=== PATIENT | female | born 1945 | race Caucasian/White ===

== ENCOUNTER 2019-10-09 12:44 | Emergency (ER) | payer OTHER ==
[2019-10-09 12:49] LABS: Glucose,Whole Blood 129 mg/dL (75-99)
--- NOTE | 2019-10-09 13:01 | ED ---
General Adult HPI - General Chief complaint: Syncope Stated complaint: Passed Out Time Seen by Provider: 10/09/19 12:45 Source: patient, EMS, RN notes reviewed Mode of arrival: EMS Limitations: no limitations - History of Present Illness Initial comments: Patient is a pleasant 74-year-old female presenting to the emergency department following a syncopal episode. Patient was at lunch when she passed out. Patient states she felt fine prior to the episode and feels fine at this time. Episode lasted approximately 2 minutes. Patient did have a near-syncopal episode once previously however never has passed out before. Patient denies any chest or back pain. No abdominal pain. No headache. No confusion. No weakness. - Related Data Allergies Allergy/AdvReac Type Severity Reaction Status Date / Time Penicillins Allergy Rash/Hives Verified 10/09/19 13:04 Sulfa (Sulfonamide Allergy Rash/Hives Verified 10/09/19 13:04 Antibiotics) Review of Systems ROS Statement: Those systems with pertinent positive or pertinent negative responses have been documented in the HPI. ROS Other: All systems not noted in ROS Statement are negative. Constitutional: Denies: fever Eyes: Denies: eye pain ENT: Denies: ear pain Respiratory: Denies: cough, dyspnea Cardiovascular: Denies: chest pain Endocrine: Denies: fatigue Gastrointestinal: Denies: abdominal pain, nausea, vomiting Genitourinary: Denies: dysuria Musculoskeletal: Denies: back pain Skin: Denies: rash Neurological: Denies: headache, weakness, numbness, paresthesias, confusion, vertigo Past Medical History History of Any Multi-Drug Resistant Organisms: None Reported Smoking Status: Never smoker Past Alcohol Use History: Occasional Past Drug Use History: None Reported General Exam Limitations: no limitations General appearance: alert, in no apparent distress Head exam: Present: atraumatic, normocephalic Eye exam: Present: normal appearance, PERRL, EOMI. Absent: nystagmus ENT exam: Present: normal oropharynx Neck exam: Present: normal inspection. Absent: tenderness Respiratory exam: Present: normal lung sounds bilaterally Cardiovascular Exam: Present: regular rate, normal rhythm Expanded Peripheral pulses: 2+: Radial (R), Radial (L), Posterior Tibialis (R), Posterior Tibialis (L), Dorsalis Pedis (R), Dorsalis Pedis (L) GI/Abdominal exam: Present: soft. Absent: tenderness Extremities exam: Present: normal inspection. Absent: pedal edema, calf tenderness Neurological exam: Present: alert, CN II-XII intact. Absent: motor sensory deficit Expanded Neurological exam: Present: protecting the airway Patient oriented to: Present: person, place. Absent: time (States the year is 2019) Speech: Present: fluid speech Cranial nerves: EOM's Intact: Normal Sensory exam: Upper Extremity Light Touch: Normal, Lower Extremity Light Touch: Normal Motor strength exam: RUE: 5, LUE: 5, RLE: 5, LLE: 5 Eye Response: (4) open spontaneously Motor Response: (6) obeys commands Verbal Response: (5) oriented Psychiatric exam: Present: normal affect, normal mood Skin exam: Present: normal color Course Vital Signs 10/09/19 10/09/19 10/09/19 12:51 13:59 14:56 Temperature 97.4 F L 97.5 F L Pulse Rate 62 68 70 Respiratory 18 18 16 Rate Blood Pressure 93/82 104/58 109/58 O2 Sat by Pulse 100 99 99 Oximetry - Reevaluation(s) Reevaluation #1: 10/09/19 14:21 Patient reevaluated and symptom-free, Alert and oriented 3. Patient and family are updated on results. Recommendation is provided to transfer by ambulance to [facility]. Patient and family are made aware that this is a facility that is able to take care mother needs. Secondary to patient being [place] they are deciding to call their insurance company prior to any transfer and are considering going to [place]. 10/09/19 14:40 Case was earlier discussed with radiologist who recommended MRI. He did not f eel there was need for CTA. Discussion with patient [employer] insurance company per their request. Case was discussed with [facility] and then case was discussed with Dr. Winston who will try to arrange transfer to [place]. She'll try to call back with an hour. Patient and family updated regarding this including risk of delayed care. 10/09/19 15:58 Insurance company, Dr. Tish Oneill did call back and is improving and helping arrange transfer. She recommends [facility]. Case was discu ssed with Dr. Zee who states they do have ability to take care of the patient and will accept transfer. EKG Findings - EKG Comments: EKG Findings:: Sinus rhythm at 61. First-degree AV block CT of 260. QRS 158. QTC 500. QTc 503. Normal axis. Left bundle-branch block. No acute ST change. Medical Decision Making - Lab Data Result diagrams: 10/09/19 12:54 10/09/19 12:54 Lab Results 10/09/19 10/09/19 10/09/19 Range/Units 12:47 12:54 12:54 WBC 5.3 (3.8-10.6) k/uL RBC 4.24 (3.80-5.40) m/uL Hgb 12.0 (11.4-16.0) gm/dL Hct 37.5 (34.0-46.0) % MCV 88.5 (80.0-100.0) fL MCH 28.2 (25.0-35.0) pg MCHC 31.9 (31.0-37.0) g/dL RDW 13.9 (11.5-15.5) % Plt Count 210 (150-450) k/uL Neutrophils % 64 % Lymphocytes % 26 % Monocytes % 6 % Eosinophils % 1 % Basophils % 0 % Neutrophils # 3.4 (1.3-7.7) k/uL Lymphocytes # 1.4 (1.0-4.8) k/uL Monocytes # 0.3 (0-1.0) k/uL Eosinophils # 0.1 (0-0.7) k/uL Basophils # 0.0 (0-0.2) k/uL PT (9.0-12.0) sec INR (<1.2) APTT (22.0-30.0) sec Sodium 139 (137-145) mmol/L Potassium 4.4 (3.5-5.1) mmol/L Chloride 108 H (98-107) mmol/L Carbon Dioxide 20 L (22-30) mmol/L Anion Gap 11 mmol/L BUN 27 H (7-17) mg/dL Creatinine 1.22 H (0.52-1.04) mg/dL Est GFR (CKD-EPI)AfAm 51 (>60 ml/min/1.73 sqM) Est GFR (CKD-EPI)NonAf 44 (>60 ml/min/1.73 sqM) Glucose 125 H (74-99) mg/dL POC Glucose (mg/dL) 129 H (75-99) mg/dL POC Glu Vessel Ordinary Seaman ID Ivett Perry Calcium 9.5 (8.4-10.2) mg/dL Magnesium 1.6 (1.6-2.3) mg/dL Total Bilirubin 0.9 (0.2-1.3) mg/dL AST 19 (14-36) U/L ALT 11 (4-34) U/L Alkaline Phosphatase 64 (38-126) U/L Troponin I (0.000-0.034) ng/mL Total Protein 7.4 (6.3-8.2) g/dL Albumin 3.8 (3.5-5.0) g/dL Urine Color Urine Appearance (Clear) Urine pH (5.0-8.0) Ur Specific Thor (1.001-1.035) Urine Protein (Negative) Ur Protein Confirm (Negative) Urine Glucose (UA) (Negative) Urine Ketones (Negative) Urine Blood (Negative) Urine Nitrite (Negative) Urine Bilirubin (Negative) Urine Urobilinogen (<2.0) mg/dL Ur Leukocyte Esterase (Negative) Urine RBC (0-5) /hpf Urine WBC (0-5) /hpf Ur Squamous Epith Cells (0-4) /hpf Urine Bacteria (None) /hpf Hyaline Casts (0-2) /lpf Urine Mucus (None) /hpf 10/09/19 10/09/19 10/09/19 Range/Units 12:54 12:54 13:47 WBC (3.8-10.6) k/uL RBC (3.80-5.40) m/uL Hgb (11.4-16.0) gm/dL Hct (34.0-46.0) % MCV (80.0-100.0) fL MCH (25.0-35.0) pg MCHC (31.0-37.0) g/dL RDW (11.5-15.5) % Plt Count (150-450) k/uL Neutrophils % % Lymphocytes % % Monocytes % % Eosinophils % % Basophils % % Neutrophils # (1.3-7.7) k/uL Lymphocytes # (1.0-4.8) k/uL Monocytes # (0-1.0) k/uL Eosinophils # (0-0.7) k/uL Basophils # (0-0.2) k/uL PT 10.8 (9.0-12.0) sec INR 1.0 (<1.2) APTT 21.5 L (22.0-30.0) sec Sodium (137-145) mmol/L Potassium (3.5-5.1) mmol/L Chloride (98-107) mmol/L Carbon Dioxide (22-30) mmol/L Anion Gap mmol/L BUN (7-17) mg/dL Creatinine (0.52-1.04) mg/dL Est GFR (CKD-EPI)AfAm (>60 ml/min/1.73 sqM) Est GFR (CKD-EPI)NonAf (>60 ml/min/1.73 sqM) Glucose (74-99) mg/dL POC Glucose (mg/dL) (75-99) mg/dL POC Glu Vessel Ordinary Seaman ID Calcium (8.4-10.2) mg/dL Magnesium (1.6-2.3) mg/dL Total Bilirubin (0.2-1.3) mg/dL AST (14-36) U/L ALT (4-34) U/L Alkaline Phosphatase (38-126) U/L Troponin I <0.012 (0.000-0.034) ng/mL Total Protein (6.3-8.2) g/dL Albumin (3.5-5.0) g/dL Urine Color Marcella Urine Appearance Cloudy H (Clear) Urine pH 6.0 (5.0-8.0) Ur Specific Thor 1.025 (1.001-1.035) Urine Protein 3+ H (Negative) Ur Protein Confirm (Negative) Urine Glucose (UA) Negative (Negative) Urine Ketones Negative (Negative) Urine Blood Large (Negative) Urine Nitrite Negative (Negative) Urine Bilirubin Negative (Negative) Urine Urobilinogen 2.0 (<2.0) mg/dL Ur Leukocyte Esterase Large (Negative) Urine RBC >182 H (0-5) /hpf Urine WBC 109 H (0-5) /hpf Ur Squamous Epith Cells 42 H (0-4) /hpf Urine Bacteria Moderate H (None) /hpf Hyaline Casts 124 H (0-2) /lpf Urine Mucus Many H (None) /hpf - Radiology Data Radiology results: report reviewed (Computed tomography scan the brain shows 1.4 cm right cerebellar lesion containing some high density material which may be some blood.), image reviewed (Chest x-ray shows no acute process) Disposition Clinical Impression: Cerebellar lesion Disposition: OTHER INSTITUTION NOT DEFINED Is patient prescribed a controlled substance at d/c from ED?: No Referrals: None,Stated [Primary Care Provider] - 1-2 days Time of Disposition: 15:59 - Out of Hospital Transfer - Req. Specs Out of Hospital Transfer - Requested Specifics: Other Emergency Center
[2019-10-09 13:06] LABS: Basophils % (A) 0 %; Eosinophils # (A) 0.1 k/uL (0-0.7); Eosinophils % (A) 1 %; HCT 37.5 % (34.0-46.0); Lymphocytes # (A) 1.4 k/uL (1.0-4.8); Lymphocytes % (A) 26 %; MCH 28.2 pg (25.0-35.0); MCHC 31.9 g/dL (31.0-37.0); MCV 88.5 fL (80.0-100.0); Mean Platelet Volume 7.9; Monocytes # (A) 0.3 k/uL (0-1.0); Monocytes % (A) 6 %; Neutrophils # (A) 3.4 k/uL (1.3-7.7); Neutrophils % (A) 64 %; Platelet Count 210 k/uL (150-450); RBC 4.24 m/uL (3.80-5.40); RDW 13.9 % (11.5-15.5); WBC 5.3 k/uL (3.8-10.6)
[2019-10-09 13:20] LABS: Albumin 3.8 g/dL (3.5-5.0); Calcium 9.5 mg/dL (8.4-10.2); Magnesium 1.6 mg/dL (1.6-2.3); Potassium 4.4 mmol/L (3.5-5.1); Total Bilirubin 0.9 mg/dL (0.2-1.3); Total Protein 7.4 g/dL (6.3-8.2)
[2019-10-09 13:24] LABS: Prothrombin Time 10.8 sec (9.0-12.0)
[2019-10-09 13:27] LABS: Partial Thromboplastin Time 21.5 sec (22.0-30.0)
--- NOTE | 2019-10-09 13:41 | CT ---
EXAMINATION TYPE: CT brain wo con DATE OF EXAM: 10/09/2019 COMPARISON: NONE HISTORY: Passed out CT DLP: 1072.4 mGycm Automated exposure control for dose reduction was used. FINDINGS: There are mild, generalized changes of sulcal prominence and ventriculomegaly compatible with mild at rophy. There is diffuse periventricular white matter lucency compatible with chronic white matter isc hemic change. There is a 1.4 cm lesion in the right cerebellar hemisphere which contains some high de nsity components. It would be difficult to exclude a small amount of blood. No other focal lesion, ma ss effect or midline shift is seen. Visualized portions of the paranasal sinuses and mastoids are clear. The bony calvarium is intact. IMPRESSION: 1.4 CM RIGHT CEREBELLAR LESION CONTAINING SOME HIGH DENSITY MATERIAL WITHIN WHICH MAY BE SOME BLOOD. THIS REPORT WAS PHONED TO DR. KENYON IN THE ER AT THE TIME OF REPORTING.
--- NOTE | 2019-10-09 14:04 | XR ---
EXAMINATION TYPE: XR chest 2V DATE OF EXAM: 10/09/2019 COMPARISON: NONE TECHNIQUE: PA and lateral views submitted. HISTORY: Syncope FINDINGS: The lungs are clear and there is no pneumothorax, pleural effusion, or focal pneumonia. No overt fa ilure. Heart size the upper limits of normal. Atherosclerotic change aorta. Biapical pleural thickeni ng. No overt failure. Prominent margin the anterior first rib on the right. Postsurgical change sugge stive of cardiac valve surgery and surgical clips right upper quadrant. Degenerative changes spine. IMPRESSION: 1. No acute process.
[2019-10-09 14:18] LABS: Bacteria,Urine Moderate /hpf; Hyaline Casts,Urine 124 /lpf (0-2); Mucus,Urine Many /hpf; RBC,Urine >182 /hpf (0-5); Squamous Epithelial Cell,Urine 42 /hpf (0-4); WBC,Urine 109 /hpf (0-5)
[2019-10-09 14:24] LABS: Appearance,Urine Cloudy (Clear); Color,Urine Amber; Glucose,Urine (UA) Negative (Negative); Ketones,Urine Negative (Negative); Protein,Urine 3+ (Negative); Specific Gravity,Urine 1.025 (1.001-1.035)
[2019-10-09 14:25] LABS: Bilirubin,Urine Negative (Negative); Blood,Urine Large (Negative); Leukocyte Esterase,Urine Large (Negative); Nitrite,Urine Negative (Negative)
[2019-10-09 16:25] VITALS: RESP 18
[2019-10-09 17:38] VITALS: BP 115/66; PULSE 71; TEMP 97.4
== END 2019-10-09 17:40 | disposition other institution (70) ==
LOC: EC 12:44
DX: G93.89 Other specified disorders of brain (principal); R55 Syncope and collapse; Z88.0 Allergy status to penicillin; Z88.2 Allergy status to sulfonamides
CPT/HCPCS: 36415; 70450; 71046; 80053; 81001; 83735; 84484; 85025; 85610; 85730; 93005; 99285